=== PATIENT | female | born 1995 | race Caucasian/White ===

== ENCOUNTER 2022-11-06 16:26 | Emergency (ER) | payer MEDICAID ==
[~2022-11-06] VITALS: Ht 154.9 cm; Wt 65.8 kg
[2022-11-06 16:30] VITALS: BP 125/82
[2022-11-06 17:12] LABS: APPEARANCE,URINE SL CLOUDY (CLEAR); BILIRUBIN,URINE NEGATIVE (NEGATIVE); BLOOD, URINE NEGATIVE (NEGATIVE); COLOR,URINE YELLOW (YELLOW); LEUKOCYTE ESTERASE ,URINE NEGATIVE (NEGATIVE); NITRITE, URINE NEGATIVE (NEGATIVE); UGLUCOSE NEGATIVE (NEGATIVE)
[2022-11-06] MEDS: ONDANSETRON 4 MG ODT PO ONE (17:18)
[2022-11-06] MEDS: KETOROLAC 30 MG/ML VIAL IM ONE (17:18)
[2022-11-06] MEDS: HYDROcodone/APAP 5/325 MG 1 TAB TAB PO ONE (17:18)
[2022-11-06] MEDS ORDERED: ONDA-188 PO (18:29)
[2022-11-06] MEDS ORDERED: ACET-5629 PO (18:29)
--- NOTE | 2022-11-06 18:39 | NUR ---
Patient discharged with v/s stable. Written and verbal after care instructions given and explained. Patient alert, oriented and verbalized understanding of instructions. Ambulatory with steady gait. All questions addressed prior to discharge. ID band removed. Patient advised to follow up with PMD. Rx of PERCOCET given. Patient educated on indication of medication including possible reaction and side effects. Opportunity to ask questions provided and answered.
== END 2022-11-06 18:39 | disposition home or self-care (01) ==
LOC: MED 16:26
DX: N20.9 Urinary calculus, unspecified (principal); Z79.899 Other long term (current) drug therapy
CPT/HCPCS: 81003; 81025; 96372; 99283; J1885; Q0162

== ENCOUNTER 2022-12-23 21:16 | Emergency (ER) | payer MEDICAID ==
[~2022-12-23] VITALS: Ht 160 cm; Wt 68.0 kg
[~2022-12-23 21:16] MED LIST: ACET-5629 PO; ONDA-188 PO
[2022-12-23 21:25] VITALS: BP 115/76
--- NOTE | 2022-12-23 21:28 | NUR ---
TO LOBBY A/W BED AMBULATORY
[2022-12-23 22:28] LABS: APPEARANCE,URINE CLEAR (CLEAR); BILIRUBIN,URINE NEGATIVE (NEGATIVE); BLOOD, URINE TRACE-I (NEGATIVE); COLOR,URINE YELLOW (YELLOW); LEUKOCYTE ESTERASE ,URINE NEGATIVE (NEGATIVE); NITRITE, URINE NEGATIVE (NEGATIVE); PH,URINE 6.5 (5.0-9.0); UGLUCOSE NEGATIVE (NEGATIVE)
[2022-12-23] MEDS ORDERED: ONDANSETRON 4 MG ODT PO ONE (22:50)
[2022-12-23] MEDS ORDERED: KETOROLAC 30 MG/ML VIAL IM ONE (22:50)
[2022-12-23 22:58] LABS: BASOPHILS % (AUTO) 0.4 % (0.0-2.0); EOSINOPHILS # (AUTO) 0.2 K/uL (0-0.4); HEMATOCRIT 40.6 % (36-48); HEMOGLOBIN 13.4 g/dL (12.0-16.0); LYMPHOCYTES # (AUTO) 2.9 K/uL (2.5-16.5); LYMPHOCYTES % (AUTO) 34.5 % (20.5-51.1); MEAN CORPUSCULAR HEMOGLOBIN 27 pg (27-31); MEAN CORPUSCULAR HGB CONC 33 g/dL (33-37); MEAN CORPUSCULAR VOLUME 83.1 fL (80-94); MONOCYTES # (AUTO) 0.8 K/uL (0.8-1.0); MONOCYTES % (AUTO) 9.9 % (1.7-9.3); NEUTROPHILS # (AUTO) 4.5 K/uL (1.8-7.7); NEUTROPHILS % (AUTO) 53.2 % (42.2-75.2); PLATELET COUNT (AUTO) 305 K/uL (140-450); RED BLOOD CELL COUNT(AUTO) 4.89 MIL/uL (4.20-5.40); RED CELL DISTRIBUTION WIDTH 14.5 % (11.6-13.7); WHITE BLOOD COUNT (AUTO) 8.5 K/uL (4.8-10.8)
[2022-12-23 23:15] LABS: WBC,URINE 0-5 /HPF (0-5)
[2022-12-23 23:23] LABS: ALBUMIN 4.1 g/dL (3.4-5.0); ANION GAP 10.1 (8-16); CARBON DIOXIDE 30.6 mmol/L (21-32); CREATININE 1.1 mg/dL (0.6-1.3); POTASSIUM 3.7 mmol/L (3.5-5.1); TOTAL BILIRUBIN 0.4 mg/dL (0.0-1.0)
--- NOTE | 2022-12-23 23:29 | NUR ---
PT ABLE TO AMBULATE TO BED 12 STEADY GAIT.
[2022-12-23] MEDS ORDERED: LID5T TP (23:49)
[2022-12-23] MEDS ORDERED: NAPR-54 PO (23:49)
[2022-12-23] MEDS ORDERED: CEPH-588 PO (23:51)
--- NOTE | 2022-12-23 23:56 | NUR ---
ER MD Raphael discharged patient. Patient left without discharge paperwork.
== END 2022-12-23 23:56 | disposition home or self-care (01) ==
LOC: MED 21:16
DX: N23 Unspecified renal colic (principal); Z79.899 Other long term (current) drug therapy
CPT/HCPCS: 36415; 80053; 81001; 81025; 85025; 87086; 96372; 99285; J1885; Q0162